=== PATIENT | female | born 1985 | race Caucasian/White ===

== ENCOUNTER 2017-06-20 | Inpatient (IN) | payer OTHER ==
[~2017-06-20] VITALS: Ht 157.5 cm; Wt 73.9 kg
[2017-06-20 00:24] VITALS: BP 125/73
[2017-06-20] MEDS ORDERED: PREN-134 PO (00:24)
[2017-06-20] MEDS ORDERED: RINGERS SOLUTION,LACTATED 1,000 ML IV ONE (02:21)
[2017-06-20] MEDS ORDERED: OXYTOCIN 30 UNITS/LACT RINGERS 500 ML IV ONE ×2 (02:24→10:40)
[2017-06-20] MEDS ORDERED: OXYTOCIN 30 UNITS/LACT RINGERS 500 ML IV PRN (02:24)
[2017-06-20] MEDS ORDERED: LIDOCAINE HCL/PF 1% 30 ML VIAL INJ PRN ×2 (02:30→10:45)
[2017-06-20] MEDS ORDERED: METOCLOPRAMIDE HCL 5 MG/ML 2 ML VIAL IVP PRN (02:30)
[2017-06-20] MEDS ORDERED: AMPICILLIN SODIUM 2 GM/NS 100 ML IV ONE (02:30)
[2017-06-20] MEDS ORDERED: CITRIC ACID/SODIUM CITRATE 30 ML SOLUTION UDCUP PO PRN (02:30)
[2017-06-20] MEDS: RINGERS SOLUTION,LACTATED 1,000 ML IV SCH ×2 (02:34→02:56)
[2017-06-20 02:48] LABS: BASOPHILS % (AUTO) 0.2 % (0.0-2.0); EOSINOPHILS % (AUTO) 0.3 % (1.0-6.0); HEMATOCRIT 35.6 % (36-46); HEMOGLOBIN 12.2 g/dL (12.0-16.0); LYMPHOCYTES # (AUTO) 1.5 K/uL (1.0-4.8); LYMPHOCYTES % (AUTO) 12.4 % (22.0-44.0); MEAN CORPUSCULAR HEMOGLOBIN 30.8 pg (26.0-34.0); MEAN CORPUSCULAR HGB CONC 34.2 G/dL (31.0-37.0); MEAN CORPUSCULAR VOLUME 90 fL (80-100); MONOCYTES # (AUTO) 0.6 K/uL (0.1-1.0); MONOCYTES % (AUTO) 4.6 % (2.0-9.0); NEUTROPHILS % (AUTO) 82.5 % (40.0-70.0); RED BLOOD CELL COUNT(AUTO) 3.96 MIL/uL (4.00-5.20); RED CELL DISTRIBUTION WIDTH 13.7 % (11.5-14.5); WHITE BLOOD COUNT (AUTO) 12.1 K/uL (4.5-11.0)
[2017-06-20] MEDS ORDERED: AMPICILLIN SODIUM 1 GM/NS 50 ML IV SCH (06:30)
[2017-06-20] MEDS ORDERED: OxyCODONE HCL/ACETAMINOPHEN 5-325 MG TABLET PO PRN ×2 (10:45)
[2017-06-20] MEDS ORDERED: LANOLIN 7 GM OINTMENT TP PRN (10:45)
[2017-06-20] MEDS ORDERED: GLYCERIN/WITCH HAZEL LEAF 40 PADS JAR TP PRN (10:45)
[2017-06-20] MEDS ORDERED: BENZOCAINE 20%/MENTHOL 56 GM SPRAY CANISTER TP PRN (10:45)
[2017-06-20] MEDS: MAGNESIUM HYDROXIDE SUSPENSION 30 ML UDCUP PO PRN (19:50)
[2017-06-20] MEDS: IBUPROFEN 800 MG TABLET PO PRN (19:51)
[2017-06-21] MEDS: IBUPROFEN 800 MG TABLET PO PRN (04:24)
[2017-06-21 06:18] LABS: BASOPHILS # (AUTO) 0.02 K/uL (0.00-0.20); BASOPHILS % (AUTO) 0.2 % (0.0-2.0); EOSINOPHILS # (AUTO) 0.07 K/uL (0.00-0.70); EOSINOPHILS % (AUTO) 0.52 % (1.0-6.0); HEMATOCRIT 27.6 % (36-46); HEMOGLOBIN 9.1 g/dL (12.0-16.0); LYMPHOCYTES # (AUTO) 2.2 K/uL (1.0-4.8); LYMPHOCYTES % (AUTO) 16.6 % (22.0-44.0); MEAN CORPUSCULAR HEMOGLOBIN 30.5 pg (26.0-34.0); MEAN CORPUSCULAR HGB CONC 32.8 G/dL (31.0-37.0); MEAN CORPUSCULAR VOLUME 93 fL (80-100); MONOCYTES # (AUTO) 0.9 K/uL (0.1-1.0); MONOCYTES % (AUTO) 7.1 % (2.0-9.0); NEUTROPHILS % (AUTO) 75.7 % (40.0-70.0); RED BLOOD CELL COUNT(AUTO) 2.97 MIL/uL (4.00-5.20); RED CELL DISTRIBUTION WIDTH 13.9 % (11.5-14.5); WHITE BLOOD COUNT (AUTO) 13.2 K/uL (4.5-11.0)
[2017-06-21] MEDS: MAGNESIUM HYDROXIDE SUSPENSION 30 ML UDCUP PO PRN (08:55)
[2017-06-21] MEDS ORDERED: IBUP-1547 PO (11:07)
[2017-06-21] MEDS ORDERED: DSS100 PO (11:08)
[2017-06-21] MEDS ORDERED: FERR-89 PO (11:09)
== END 2017-06-21 11:55 | disposition home or self-care (01) | DRG 775 ==
LOC: 4S → OBSVTOIN
PROVIDERS: ADMIT Obstetrics & Gynecology; ATTEND Obstetrics & Gynecology
PROC: 10E0XZZ Delivery of Products of Conception, External Approach (ICD-10-PCS; principal; 2017-06-20)
PROC: 0KQM0ZZ Repair Perineum Muscle, Open Approach (ICD-10-PCS; 2017-06-20)
PROC: 3E0R3CZ (ICD-10-PCS; 2017-06-20)
PROC: 00HU33Z Insertion of Infusion Device into Spinal Canal, Percutaneous Approach (ICD-10-PCS; 2017-06-20)
DX: O77.0 Labor and delivery complicated by meconium in amniotic fluid (principal); O70.1 Second degree perineal laceration during delivery; Z3A.39 39 weeks gestation of pregnancy; Z37.0 Single live birth
CPT/HCPCS: 86850; 86900; 86901; J2590; J7120

== ENCOUNTER 2020-12-10 11:56 | Observation (INO) | payer OTHER ==
[~2020-12-10 11:56] MED LIST: DSS100 PO; FERR-89 PO; IBUP-2071 PO; PREN-134 PO
[2021-01-26 09:46] VITALS: BP 110/69
[2021-01-26] MEDS ORDERED: RINGERS SOLUTION,LACTATED 1,000 ML IV SCH (11:00)
== END 2021-01-26 12:05 | disposition home or self-care (01) ==
LOC: 4S 01-26 09:21
PROVIDERS: ADMIT Obstetrics & Gynecology; ATTEND Obstetrics & Gynecology
DX: O09.523 Supervision of elderly multigravida, third trimester (principal); Z3A.37 37 weeks gestation of pregnancy
CPT/HCPCS: 59025; 76805; 81001; 96360; 99219; J7120

== ENCOUNTER 2021-02-03 00:33 | Inpatient (IN) | payer OTHER ==
[~2021-02-03] VITALS: Ht 162.6 cm; Wt 79.4 kg
[2021-02-03 00:50] VITALS: BP 120/77
[2021-02-03] MEDS ORDERED: CITRIC ACID/SODIUM CITRATE 30 ML SOLUTION UDCUP PO PRN (01:15)
[2021-02-03] MEDS ORDERED: RINGERS SOLUTION,LACTATED 1,000 ML IV PRN (01:15)
[2021-02-03] MEDS ORDERED: METOCLOPRAMIDE HCL 5 MG/ML 2 ML VIAL IVP PRN (01:15)
[2021-02-03] MEDS ORDERED: METHYLERGONOVINE MALEATE 0.2 MG/ML VIAL IM PRN (01:15)
[2021-02-03] MEDS ORDERED: DINOPROSTONE 10 MG VAGINAL SUPPOSITORY VG ONE (01:15)
[2021-02-03] MEDS ORDERED: OXYTOCIN 30 UNITS/LACT RINGERS 500 ML IV ONE (01:15)
[2021-02-03] MEDS ORDERED: FentaNYL CITRATE PF 100 MCG/2 ML VIAL IVP PRN (01:15)
[2021-02-03] MEDS ORDERED: LIDOCAINE/PF 1% 30 ML VIAL SQ PRN (01:15)
[2021-02-03 02:01] LABS: BASOPHILS % (AUTO) 0.5 % (0.0-2.0); EOSINOPHILS % (AUTO) 0.8 % (1.0-6.0); HEMOGLOBIN 10.8 g/dL (12.0-16.0); LYMPHOCYTES # (AUTO) 2.5 K/uL (1.0-4.8); LYMPHOCYTES % (AUTO) 31.7 % (22.0-44.0); MEAN CORPUSCULAR HEMOGLOBIN 29.9 pg (26.0-34.0); MEAN CORPUSCULAR HGB CONC 33.9 G/dL (31.0-37.0); MEAN CORPUSCULAR VOLUME 88 fL (80-100); MONOCYTES # (AUTO) 0.7 K/uL (0.1-1.0); MONOCYTES % (AUTO) 8.9 % (2.0-9.0); NEUTROPHILS # (AUTO) 4.6 K/uL (1.8-7.7); NEUTROPHILS % (AUTO) 58.1 % (40.0-70.0); PLATELET COUNT (AUTO)-OB 291 K/uL (150-450); RED BLOOD CELL COUNT(AUTO) 3.62 MIL/uL (4.00-5.20); RED CELL DISTRIBUTION WIDTH 13.9 % (11.5-14.5)
[2021-02-03] MEDS: RINGERS SOLUTION,LACTATED 1,000 ML IV SCH ×2 (02:37→09:17)
[2021-02-03 04:16] LABS: COVID AG,FIA SOURCE NASOPHARYNGEAL
[2021-02-03] MEDS ORDERED: OXYTOCIN 30 UNITS/LACT RINGERS 500 ML IV PRN (06:30)
[2021-02-03] MEDS ORDERED: OXYGEN THERAPY IH SCH (08:00)
[2021-02-03] MEDS ORDERED: DiphenhydrAMINE HCL 50 MG/ML VIAL IVP PRN (09:30)
[2021-02-03] MEDS ORDERED: ROPIVACAINE HCL/PF 0.2% 100 ML ED PRN (09:30)
[2021-02-03] MEDS ORDERED: ONDANSETRON HCL 4 MG/2 ML VIAL IVP PRN (09:30)
[2021-02-03] MEDS ORDERED: DEXTROSE 5%-LACTATED RINGERS 1,000 ML ONE (13:06)
[2021-02-03] MEDS ORDERED: -PHARMACY NOTE- MISC ONE (13:15)
[2021-02-03] MEDS ORDERED: BENZOCAINE 20%/MENTHOL 56 GM SPRAY CANISTER TP PRN (15:00)
[2021-02-03] MEDS ORDERED: GLYCERIN/WITCH HAZEL LEAF 40 PADS JAR TP PRN (15:00)
[2021-02-03] MEDS ORDERED: ACETAMINOPHEN/CODEINE 300-30 MG TABLET PO PRN ×2 (15:00)
[2021-02-03] MEDS ORDERED: LANOLIN 7 GM OINTMENT TP PRN (15:00)
[2021-02-03] MEDS ORDERED: MAGNESIUM HYDROXIDE SUSPENSION 30 ML UDCUP PO SCH (21:00)
[2021-02-04] MEDS ORDERED: IBUP-2070 PO (13:44)
== END 2021-02-04 15:00 | disposition home or self-care (01) | DRG 807 ==
LOC: 4S 00:33 → PREOBSVTOIN 03-03 00:58
PROVIDERS: ADMIT Obstetrics & Gynecology; ATTEND Obstetrics & Gynecology
PROC: 10E0XZZ Delivery of Products of Conception, External Approach (ICD-10-PCS; principal; 2021-02-03)
PROC: 0KQM0ZZ Repair Perineum Muscle, Open Approach (ICD-10-PCS; 2021-02-03)
PROC: 3E0S3BZ Introduction of Anesthetic Agent into Epidural Space, Percutaneous Approach (ICD-10-PCS; 2021-02-03)
PROC: 00HU33Z Insertion of Infusion Device into Spinal Canal, Percutaneous Approach (ICD-10-PCS; 2021-02-03)
DX: O70.1 Second degree perineal laceration during delivery (principal); Z37.0 Single live birth; Z3A.39 39 weeks gestation of pregnancy; Z20.822 Contact with and (suspected) exposure to COVID-19
CPT/HCPCS: 86850; 86900; 86901; 87426; J2590; J7120